=== PATIENT | male | born 1985 | race Caucasian/White ===

== ENCOUNTER 2024-12-11 07:18 | Emergency (ER) | payer OTHER, SELFPAY ==
[2024-12-11 07:23] VITALS: BP 137/92; PULSE 80; RESP 18; TEMP 36.1; O2SAT 98; BMI 47.5
--- OUTSIDE RECORDS SUMMARY | 2024-12-11 07:36 | XMS_ITS | Clinical Summary ---
Author Organization [facility] Address [address] [place] [address] Phone Care Team Providers Care Night Cleaner Name Role Phone Cleveland Fam MD Primary Care Provider [phone] Allergies No known active allergies Medications venlafaxine XR (EFFEXOR-XR) 75 mg 24 hr capsule TAKE 1 CAPSULE BY MOUTH EVERY DAY 90 capsule 1 5 Active LORazepam (ATIVAN) 0.5 mg tablet TAKE 1 TABLET BY MOUTH EVERY 6 HOURS NEEDED FOR ANXIETY 112 tablet 5 Active LORazepam (ATIVAN) 0.5 mg tablet TAKE 1 TABLET BY MOUTH EVERY 6 HOURS NEEDED FOR ANXIETY 112 tablet 5 12/06/19 25 Discontinued Active Problems Problem Noted Date Diagnosed Date Prediabetes 03/15/2022 Anxiety 07/22/2015 Mixed hyperlipidemia 09/22/2013 Impetigo 05/14/2006 Encounters Date Type Department Care Team Description 09/15/2024 2:00 PM EDT Office Visit Adult Medicine [address] [phone] Cleveland Fam MD Routine physical examination (Primary Dx); Pure hypercholesterolemia; Prediabetes; Morbid obesity with BMI of 45.0-49.9, adult (CMS/HCC V24, CMS/HCC V28); Need for tetanus, diphtheria, and acellular pertussis (Tdap) vaccine; Anxiety from Last 3 Months Immunizations Name Administration Dates Next Due DTP 12/31/1988, 8,1987,1987 [id number] (Pentacel) 2mo to less than 5yo 07/01/1988 Hepatitis B Pediatric (Enger ix B; Recombivax HB) to less than 20 yo 06/02/1998,06/22/1997,05/15/1997 Influenza Quadravalent, MDCK , 0.5ml, preservative free (Flucelvax) 6mo and older 01/14/2018 MMR, measles mumps and rubel la Live (Priorix; M-M-R II) 12mo and older 12/07/1999,07/01/1988 OPV 12/31/1988,1987,1987 Td Tetanus diptheria (Tdvax) 7yo and older 12/07/1999 Tdap Tetanus diptheria acell ular pertussis (Boostrix; Adacel) 7yo and older 09/15/2024,09/22/2013 Medical History Medical History Date Comments Astigmatism, unspecified DX:Asti gmatism, unspecified Obesity, unspecified DX:Obesity, unspecified Varicella without mention of complication 1997 DX:Varicella without mention of complication Impetigo DX:Impetigo Family History Medical History Relation Name Comments Alcohol/Drug Mother years ago Allergies Mother Asthma Mother Diabetes Mother CHF Other cancer Mother cervical Relation Name Status Comments Brother Alive 04/27/1989 manu el Father Alive Mother Alive Social History Tobacco Use Types Packs/Day Years Used Date Smoking Tobacco: Former Smokeless Tobacco: Never Alcohol Use Standard Drinks/Week Comments Not Currently 0 (1 standard drink = 0.6 oz pur e alcohol) Housing Instability Answer Date Recorde d Are you worried that in the next 2 months you may not have stable housing? No 09/15/2024 Food Access & Nutrition Answer Date Rec orded Do you have access to a vari ety of food including fruits and vegetables? Yes 09/15/2024 Access to Healthcare Answer Date Record ed Within the last 3 months, ho w many times did you visit the emergency department for your medical care? 0 09/15/2024 Health Literacy Answer Date Recorded How often do you need to hav e someone help you when you read instructions, pamphlets, or other written material from your doctor or pharmacy? Never 09/15/2024 Caregiver: How often do you need to have someone help you when you read instructions, pamphlets, or other written material from your doctor or pharmacy? Not on file 09/15/2024 Financial Risk Answer Date Recorded How hard is it for you to pa y for the very basics like food, housing, medical care, and air conditioning / heating? Somewhat hard 09/15/2024 Transportation Answer Date Recorded Has the lack of transportati on kept you from meetings, work, or from getting things needed for daily living? No Has the lack of transportati on kept you from medical appointments or from getting medications? No 09/15/2024 Social Isolation Answer Date Recorded How often do you feel lonely or isolated from th ose around you? Never 09/15/2024 Food Risk Answer Date Recorded Within the past 12 months we worried whether our food would run out before we got money to buy more. Never true 09/15/2024 Within the past 12 months th e food we bought just didn't last and we didn't have money to get more. Never true 09/15/2024 Education Answer Date Recorded Do you think completing more education or training, like finishing a GED, going to college, or learning a trade, would be helpful for you? No 09/15/2024 Employment and Income Answer Date Recor ded During the last four weeks, have you been actively looking for work? No 09/15/2024 Living Situation Answer Date Recorded What is your living situation? 0 09/15/2024 Sex and Gender Information Value Date Recorded Sex Assigned at Not on file Legal Sex Male 9:48 PM EST Gender Identity Not on file Sexual Orientation Not on file Obstetrics History Last Filed Vital Signs Vital Sign Reading Time Taken Comments Blood Pressure 118/80 09/15/2024 1:54 PM EDT Pulse 90 09/15/2024 1:54 PM EDT Temperature 36.6 C (97.8 F) 09/15/2024 1:54 PM EDT Respiratory Rate 14 09/15/2024 1:54 PM EDT Oxygen Saturation 98% 09/15/2024 1:54 PM EDT Inhaled Oxygen Concentration - - Weight 142 kg (313 lb 12.8 oz) 09/15/2024 1:54 P M EDT Height 170.2 cm (5' 7 ) 09/15/2024 1:54 PM EDT Body Mass Index 49.15 09/15/2024 1:54 PM EDT Plan of Treatment Upcoming Encounters Date Type Department Care Team (Late st Contact Info) Description 04/14/2025 4:30 PM EST Office Visit Adult Medicine [facility] [address], [place] [phone] Cleveland Fam MD [address] [place], [place] Health Maintenance Due Date Last Done Comments HIV Screening 02/25/2022 Hepatitis C Screening 02/25/2022 COVID-19 Vaccine ( season) 2024 11/20/2020, 10/23/2020 Influenza Vaccine (#1) 2024 01/14/2018 Social Influencers of Health Screening 09/15/2025 09/15/2024 Cholesterol Screening (Lipid Panel) 09/15/2029 09/15/2024, 08/23/2023, 08/23/2023 DTaP,Tdap,and Td Vaccines (8 - Td or Tdap) 09/15/2034 09/15/2024, 09/22/2013, 12/07/1999, Additional history exists RSV Immunization Adult Patients (1 - 1-dose 75+ series) 2062 HIB Vaccines Completed 07/01/1988 IPV Vaccines Completed 12/31/1988, 06/17, 1987, Additional history exists Hepatitis B Vaccines Completed 06/02/1998, 06/22/1997, 05/15/1997 MMR Vaccines Completed 12/07/1999, 07/01/1988 Depression Screening Completed 09/15/2024 HPV Vaccines Aged Out No longer eligi ble based on patient's age to complete this topic Hepatitis A Vaccines Aged Out No long er eligible based on patient's age to complete this topic Meningococcal ACWY Vaccine Aged Out N o longer eligible based on patient's age to complete this topic Meningococcal B Vaccine Aged Out No l onger eligible based on patient's age to complete this topic Pneumococcal Vaccine: Pediatrics (0 to 5 Years) and At-Risk Patients (6 to 49 Years) Aged Out No longer eligible based on patient's age to complete this topic RSV Immunization Patients Under 20 months Aged Out No longer eligible based on patient's age to complete this topic Varicella Vaccines Aged Out No longer eligible based on patient's age to complete this topic Procedures Procedure Name Priority Date/Time Associated Diagnosis Comments CBC WITH AUTO DIFFERENTIAL Routine 09/15/2024 2:47 PM EDT Routine physical examination CBC AND DIFFERENTIAL Routine 09/15/2024 2:47 PM EDT Routine physical examination COMPREHENSIVE METABOLIC PANEL Routine 09/15/2024 2:47 PM EDT Routine physical examination Prediabetes LIPID PANEL WITH REFLEX TO DIRECT LDL Routine 09/15/2024 2:47 PM EDT Routine physical examination Pure hypercholesterolemia HEMOGLOBIN A1C Routine 09/15/2024 2:47 PM EDT Prediabetes from Last 3 Months Results * (ABNORMAL) Lipid panel with reflex to direct LDL (09/15/2024 2:47 PM EDT) Cholesterol 208(H) 0 - 200 mg/dL LAB CHEMISTRY METHOD 09/15/2024 5:05 PM [facility] Triglycerides 76 0 - 150 mg/dL LAB CHEMISTRY METHOD 09/15/2024 5:05 PM [facility] HDL 51 >=40 mg/dL LAB CHEMISTRY METHOD 09/15/2024 5:05 PM [facility] LDL Calculated 142(H) 0 - 100 mg/dL LAB CHEMISTRY METHOD 09/15/2024 5:05 PM [facility] VLDL Cholesterol Caleb 15.2 mg/dL LAB CHEMISTRY METHOD 09/15/2024 5:05 PM [facility] Non HDL Chol. (LDL+VLDL) 157(H) <145 mg/dL LAB CHEMISTRY METHOD 09/15/2024 5:05 PM [facility] Chol/HDL Ratio 4.1 0.0 - 4.4 LAB CHEMISTRY METHOD 09/15/2024 5:05 PM [facility] Blood Venous blood specimen / Unknown Venipuncture / Unknown 09/15/2024 2:47 PM EDT 09/15/2024 2:47 PM EDT us Cleveland Fam MD LAB BLOOD ORDERABLES Final Resu lt [facility] [address] [place] [address], * (ABNORMAL) CBC auto differential (09/15/2024 2:47 PM EDT) WBC 12.9(H) 4.8 - 10.8 K/mcL LAB HEMETOLOGY METHOD 09/15/2024 4:33 PM EDT [facility] RBC 5.10 4.50 - 5.50 M/mcL LAB HEMETOLOGY METHOD 09/15/2024 4:33 PM EDT [facility] Hemoglobin 14.0 13.5 - 17.5 g/dL LAB HEMETOLOGY METHOD 09/15/2024 4:33 PM EDT [facility] Hematocrit 43.9 42.0 - 54.0 % LAB HEMETOLOGY METHOD 09/15/2024 4:33 PM EDT [facility] MCV 86.8 79.0 - 98.0 FL LAB HEMETOLOGY METHOD 09/15/2024 4:33 PM EDT [facility] MCH 27.7 27.0 - 32.0 pcg LAB HEMETOLOGY METHOD 09/15/2024 4:33 PM EDT [facility] MCHC 31.9(L) 32.0 - 37.0 g/dL LAB HEMETOLOGY METHOD 09/15/2024 4:33 PM EDT [facility] RDW 14.2 11.0 - 15.0 % LAB HEMETOLOGY METHOD 09/15/2024 4:33 PM EDT [facility] Platelets 296 130 - 400 K/mcL LAB HEMETOLOGY METHOD 09/15/2024 4:33 PM EDT [facility] MPV 9.6 7.0 - 11.0 FL LAB [facility]OLOGY [facility] NRBC 0.0 <1.0 % LAB HEMETOLOGY METHOD 09/15/2024 4:33 PM EDT [facility] NRBC Absolute 0.00 <0.10 K/mcL LAB HEMETOLOGY METHOD [facility]/15[facility]24 [facility] Neutrophils Relative 73.0 % LAB HEMETOLOGY METHOD 09/15/2024 4:33 PM [facility] Lymphocytes Relative 18.7 % LAB HEMETOLOGY METHOD 09/15/2024 4:33 PM [facility] Monocytes Relative 5.9 % LAB HEMETOLOGY METHOD 09/15/2024 4:33 PM [facility] Eosinophils Relative 1.8 % LAB HEMETOLOGY METHOD 09/15/2024 4:33 PM [facility] Basophils Relative 0.2 % LAB HEMETOLOGY METHOD 09/15/2024 4:33 PM [facility] Immature Granulocytes Relative 0.4 % LAB HEMETOLOGY METHOD 09/15/2024 4:33 PM [facility] Neutrophils Absolute 9.43(H) 1.50 - 7.00 K/mcL LAB HEMETOLOGY METHOD [facility]24 [facility] Lymphocytes Absolute 2.41 1.00 - 5.00 K/mcL LAB HEMETOLOGY METHOD 09/15/2024 4:33 PM [facility] Monocytes Absolute 0.76 0.20 - 1.00 K/mcL LAB HEMETOLOGY METHOD [facility]/15[facility]2024 4[facility] Eosinophils Absolute 0.23 0.00 - 0.50 K/[facility] LAB HEMETOLOGY METHOD 09/15/2024 4:33 PM EDT [facility] Basophils Absolute 0.03 0.00 - 0.20 K/[facility] LAB HEMETOLOGY METHOD 09/15/2024 4:33 PM EDT [facility] Immature Granulocytes Absolute 0.05(H) 0.00 - 0.03 K/[facility] LAB HEMETOLOGY METHOD 09/15/2024 4:33 PM EDT [facility] Blood Venous blood specimen / Unknown Venipuncture / Unknown 09/15/2024 2:47 PM EDT 09/15/2024 2:47 PM EDT us Cleveland Fam MD LAB BLOOD ORDERABLES Final Resu lt Performing Organization Address [facility]/ZIP Co de Phone Number [facility] [address] [place] [address], [place] [phone] * Hemoglobin A1c (09/15/2024 2:47 PM EDT) [facility] Hemoglobin A1C 5.8 <6.5 % LAB CHEMISTRY METHOD 09/15/2024 9:09 PM EDT [facility] Mean Bld Glu Estim. 120 mg/dL LAB CHEMISTRY METHOD 09/15/2024 9:09 PM EDT [facility] Blood Venous blood specimen / Unknown Venipuncture / Unknown 09/15/2024 2:47 PM EDT 09/15/2024 2:47 PM EDT us Cleveland Fam MD LAB BLOOD ORDERABLES Final Resu lt Performing Organization Address City/[facility]/ZIP Co de Phone Number [facility] [address] [place] [address], [place] [phone] * Comprehensive metabolic panel (09/15/2024 2:47 PM EDT) Sodium 138 133 - 145 mmol/L LAB CHEMISTRY METHOD 09/15/2024 5:05 PM [facility] Potassium 4.2 3.5 - 5.5 mmol/L LAB CHEMISTRY METHOD 09/15/2024 5:05 PM [facility] Chloride 106 96 - 110 mmol/L LAB CHEMISTRY METHOD 09/15/2024 5:05 PM [facility] CO2 26 21 - 32 mmol/L LAB CHEMISTRY METHOD 09/15/2024 5:05 PM [facility] Anion Gap 6 3 - 11 LAB CHEMISTRY METHOD 09/15/2024 5:05 PM [facility] Glucose 99 70 - 100 mg/dL LAB CHEMISTRY METHOD 09/15/2024 5:05 PM [facility] BUN 12 5 - 25 mg/dL LAB CHEMISTRY METHOD 09/15/2024 5:05 PM [facility] Creatinine 0.86 0.70 - 1.30 mg/dL LAB CHEMISTRY METHOD 09/15/2024 5:05 PM [facility] eGFR 114 >=60 mL/min/1. 73m2 LAB CHEMISTRY METHOD 09/15/2024 5:05 PM [facility] Comment:Calculation based on the Chronic Kidney Disease Epidemiology Collaboration (CKD-EPI) equation refit without adjustment for race. BUN/Creatinine Ratio 14.0 LAB CHEMISTRY METHOD 09/15/2024 5:05 PM [facility] Calcium 9.2 8.5 - 10.5 mg/dL LAB CHEMISTRY METHOD 09/15/2024 5:05 PM [facility] AST (SGOT) 13 10 - 42 unit/L LAB CHEMISTRY METHOD 09/15/2024 5:05 PM [facility] ALT (SGPT) 32 10 - 60 unit/L LAB CHEMISTRY METHOD 09/15/2024 5:05 PM [facility] Alkaline Phosphatase 87 42 - 121 unit/L LAB CHEMISTRY METHOD 09/15/2024 5:05 PM EDT [facility] Total Protein 7.2 6.0 - 8.0 g/dL LAB CHEMISTRY METHOD 09/15/2024 5:05 PM EDT [facility] Albumin 4.2 3.2 - 5.0 g/dL LAB CHEMISTRY METHOD 09/15/2024 5:05 PM EDT [facility] Total Bilirubin 0.4 0.0 - 1.4 mg/dL LAB CHEMISTRY METHOD 09/15/2024 5:05 PM EDT [facility] Blood Venous blood specimen / Unknown Venipuncture / Unknown 09/15/2024 2:47 PM EDT 09/15/2024 2:47 PM EDT us Cleveland Fam MD LAB BLOOD ORDERABLES Final Resu lt [facility] [address] [place] [address], from Last [address] [facility] Care Teams Night Cleaner Relationship Specialty Start Date End Date Cleveland Fam MD PCP - General Internal Medicine 01/20/15
[2024-12-11 07:48] VITALS: BP 103/74; PULSE 86; RESP 18; TEMP 36.5; O2SAT 97
--- NOTE | 2024-12-11 07:55 | ED_ITS ---
HPI - General Adult General Chief complaint: Upper Respiratory Symptoms Stated complaint: Headache, fever, congestion Time Seen by Provider: 12/11/24 07:51 Source: patient Mode of arrival: ambulatory Limitations: no limitations History of Present Illness ED Provider: Yoana Gillespie PA-C HPI narrative: Patient is a 39 year old assigned male at with no reported medical history presenting to the emergency department today with a headache and nasal congestion. Patient states that over the last 4 days he has had a headache and nasal congestion. Patient denies any other complaints at this time. Patient states that he is primarily worried he has COVID-19. Onset (ago): day(s) (4) Relieving factors: none Exacerbating factors: none Treatments prior to arrival: none Related Data Allergies Allergy/AdvReac Type Severity Reaction Status Date / Time No Known Allergies Allergy Verified 12/11/24 07:27 Review of Systems Constitutional: Constitutional: Reports as per HPI Eyes: Eyes: Reports as per HPI ENT: Reports as per HPI Cardiovascular: Cardiovascular: Reports as per HPI Respiratory: Respiratory: Reports as per HPI Gastrointestinal: Gastrointestinal: Reports as per HPI Genitourinary: Genitourinary: Reports as per HPI Musculoskeletal: Musculoskeletal: Reports as per HPI Integumentary/Breasts: Skin/Breast: Reports as per HPI Neurologic: Reports as per HPI Psychiatric: Psychiatric: Reports as per HPI Endocrine: Endocrine: Reports as per HPI Hematologic/Lymphatic: Hematologic/Lymphatic: Reports as per HPI Allergic/Immunologic: Allergic/Immunologic: Reports as per HPI PMFSH Past Medical History Attestation statement: The following information was validated with the patient. Source: old records reviewed and nursing notes reviewed Social History Social History Advance Directives: No Advance Directives Information Provided: Yes Do you have a plan to hurt others: No Plan Physical Exam ED Vital Signs: Vital Signs - 24 hr 12/11/24 07:23 12/11/24 07:48 12/11/24 09:46 Temperature 97.0 F 97.7 F 97.7 F Pulse Rate 80 86 86 Respiratory Rate 18 18 18 Blood Pressure 137/92 H 103/74 103/74 Pulse Oximetry 98 97 97 Oxygen Delivery Method Room Air Room Air Room Air BMI result Body Mass Index 47.5 Const General: cooperative, no acute distress, alert and awake Nutritional Appearance: well nourished Orientation/consciousness: patient oriented x3 HENMT Head: Yes normal to inspection and Yes atraumatic Ears: hearing grossly normal bilaterally and external ears normal General nose exam: Normal external nose present, no nasal discharge noted and no epistaxis Face and sinus: Yes normal facial exam, No abrasion and No laceration Mouth: Normal oral and palatal mucosa present, no drooling and no muffled voice Eyes General: appearance normal, both eyes and all related structures Periorbital: periorbital findings normal Eyelids: Yes eyelids normal Conjunctivae: conjunctivae normal Pupils: Equal, round and reactive pupils present EOM: EOMs intact bilaterally Neck Neck: Yes normal visual inspection and Yes full ROM Resp Effort & Inspection: normal respiratory effort and able to speak in complete sentences Neuro General: patient oriented x3, moves all extremities and CN's II-XI intact bilaterally Cranial nerves: Yes Equal, round and reactive pupils present Cognition (Neuro): normal cognition Extrem General: Yes normal to inspection, Yes full ROM and Yes capillary refill normal Psych Appearance: grossly normal Mental Status: mental status grossly normal Affect: normal affect Attitude: cooperative Thought process: Normal thought process present Thought content: Normal thought content present Insight: Good insight present (Psych) Medical Decision Making Medical Decision Making MDM Narrative: Patient is a 39 year old assigned male at with no reported medical history presenting to the emergency department today with a headache and nasal congestion. Patient's physical exam was unremarkable. Patient's COVID-19, influenza, and strep testing were negative. Patient's clinical presentation is most consistent with a viral illness. I explained my physical exam findings as well as all test results to the patient. I answered all questions asked by the patient. I stressed the importance of the patient taking his medication as directed (either prescribed or as the over the counter packaging recommends). I stressed the importance of the patient following up with his primary care provider. I stressed the importance of the patient returning to the emergency department immediately if his symptoms were to worsen or if he were to develop any dizziness, shortness of breath, difficulty breathing, chest pain, blurry vision, loss of vision, nausea, vomiting, abdominal pain, fever, chills, back pain, or any other complaints. Patient verbalized agreement and understanding with this treatment plan and discharge. Differential Diagnosis Differential Diagnoses: The differential diagnosis associated with the presentation includes Viral illness COVID-19 Influenza Pharyngitis Admission/Observation Consideration of admission/observation: Escalation of care including admission/observation considered Patient would have been admitted to the hospital had his work up had any findings where hospital admission was appropriate and his clinical presentation warranted hospital admission. Lab Data MDM Lab Attestation statement: I reviewed the patient's lab results. My interpretation of these studies and their corresponding values is that they are grossly normal. Labs: Lab Results 12/11/24 12/11/24 Range/Units 08:24 08:25 COVID-19 (LATRICE) Negative (Negative) COVID-19 Clin Com See Note Influenza Type A (AL) Negative (Negative) Influenza Type B (AL) Negative (Negative) Influenza A & B Note See Note S. pyogenes GrpA AL Negative (Negative) Discharge Plan Discharge Clinical Impression: Upper respiratory infection Patient Disposition: Home, Self-Care Instructions: Upper Respiratory Infection (DC) Additional Instructions: IF you are prescribed home medications and/or you are taking over the counter medications at home - it is very important you continue to do so as prescribed / directed unless told otherwise. Follow up with your primary care provider. Return to the emergency department immediately if your symptoms worsen or if you develop any numbness, tingling, dizziness, shortness of breath, difficulty breathing, chest pain, blurry vision, loss of vision, nausea, vomiting, abdominal pain, fever, chills, back pain, or any other complaints. Please see the information below about our Patient Portal. If you are not yet enrolled in the [facility] Patient Portal, you will receive an enrollment email invitation following your visit to any [facility] setting. You may also self-enroll in the Patient Portal by visiting our website: [email or web address] The following information is required to access the Patient Portal: - Your [facility] Medical Record Number - Your personal home email address (must match what is in your electronic medical record, Registration staff can assist with this) - Name - Date of Capabilities of the Patient Portal: - Message some providers - View upcoming appointments - Access your health summary, medical history, and visit history - View current conditions and allergies - View procedure and lab results - View your medications, including guidelines, side effects, and precautions - Complete pre-appointment questionnaires requested by your provider - Ready summary reports of your office visits and procedures To access the Patient Portal Mobile [employer], follow these directions: - Search [employer] in the [employer] Store or [employer] Store - Download the [employer] - Search for [facility] - Enter your login/password Referrals: Cleveland Fam III, MD [Primary Care Provider, Medical] Stand Alone Forms: Work/School Release Interventions: ED Discharge Assessment Last Done: 12/11/24 09:46 Discharge Date/Time: 12/11/24 09:46 Print Language: Surinamese
[2024-12-11 08:47] LABS: IDNOW Serial# 58CA691E; Strep A Nucleic Acid Negative (Negative)
[2024-12-11 08:52] LABS: IDNOW Serial# 55D5AD1C; Influenza B2 Negative (Negative)
[2024-12-11 09:15] LABS: COVID-19 Test Negative (Negative); IDNOW Serial# 6674DD1D
[2024-12-11 09:46] VITALS: BP 103/74; PULSE 86; RESP 18; TEMP 36.5; O2SAT 97
== END 2024-12-11 09:46 | disposition home or self-care (01) ==
PROVIDERS: Physician Assistant Medical; Emergency Provider Emergency Medicine; PCP Internal Medicine
DX: J06.9 Acute upper respiratory infection, unspecified (principal); R51.9 Headache, unspecified; R50.9 Fever, unspecified; R09.81 Nasal congestion; Z11.52 Encounter for screening for COVID-19
CPT/HCPCS: 87502; 87635; 87651; 99283